=== PATIENT | male | born 1960 | race Caucasian/White ===

== ENCOUNTER 2016-08-17 15:19 | Emergency (ER) | payer MEDICARE, MEDICAID ==
[~2016-08-17] VITALS: Ht 175.3 cm; Wt 77.3 kg
[2016-08-17 15:22] VITALS: BP 127/73; PULSE 83; RESP 18; O2SAT 99
--- NOTE | 2016-08-17 16:44 | DRSVH ---
PROCEDURE: X-RAY RIGHT SHOULDER, MINIMUM TWO VIEWS ([id number]) INDICATIONS: fall TECHNIQUE: 3 views of the shoulder were acquired. COMPARISON: None. FINDINGS: Bones: No f there is mild periarticular osteophyte formation at the acromioclavicular and glenohumer al joints. ractures or dislocations. No suspicious bony lesions. Visualized ribs appear intact. Soft tissues: No suspicious soft tissue calcifications. IMPRESSION: No acute fracture. No osseous lesion. If symptoms and/or clinical suspicion for patholog y persist, further assessment with repeat, or advanced imaging (e.g., CT, MRI, or bone scan) may be h elpful for further assessment. Dictated by: Roverto Richardson M.D. on 08/17/2016 at 16:42 Approved by: Roverto Richardson M.D. on 08/17/2016 at 16:42
--- NOTE | 2016-08-17 16:44 | DRSVH ---
PROCEDURE: X-RAY CHEST, TWO VIEWS ([id number]) INDICATIONS: fall TECHNIQUE: 2 views of the chest were acquired. COMPARISON: [facility], , CHEST 1VW (PORTABLE), 05/03/2012, 20:30. FINDINGS: Surgical changes and devices: None. Lungs and pleura: No pleural effusions or pneumothorax. Lungs are clear. Mediastinum: Mediastinal contours are normal. Heart size is normal. Bones and chest wall: No suspicious bony abnormalities. Soft tissues appear unremarkable. IMPRESSION: No acute process. Dictated by: Roverto Richardson M.D. on 08/17/2016 at 16:42 Approved by: Roverto Richardson M.D. on 08/17/2016 at 16:42
--- NOTE | 2016-08-17 17:41 | PCM.EDPN ---
ED Note Date of Service Aug 17, 2016 48-year-old male who has left without being seen. Complaining of rib pain and shoulder pain after a fall 3 days ago. Vitals are normal. X-rays are normal. I do not believe this patient needs a call back or intervention. Pan Escobar MD Aug 17, 2016 17:41
== END 2016-08-17 17:39 | disposition left against medical advice (07) ==
LOC: SED 15:19
DX: Z53.21 Procedure and treatment not carried out due to patient leaving prior to being seen by health care provider (principal)

== ENCOUNTER 2016-08-17 17:49 | Emergency (ER) | payer MEDICAID, MEDICARE ==
--- NOTE | 2016-08-17 19:04 | ED.REPORT ---
HPI-General Illness Date of Service Aug 17, 2016 ED Provider: Jonathan Terrell PA-C Bernard is a 56-year-old male who returns to the emergency room with a chief complaint of left rib pain and right shoulder pain. he was here earlier in the day and left without being seen. Patient reports approximately 3 days ago he fell down a hill striking his left anterior chest and right shoulder. Complains of severe pain in both areas since then. He finds it difficult to draw deep breath, feels short of breath and lightheaded. Reports a history of [place], stent placement. Nursing Notes Stated Complaint: RIB PAIN Nursing Notes Reviewed: Yes Allergies: Coded Allergies: No Known Allergies (Verified , 08/17/16) No Active Prescriptions or Reported Meds General Time Seen by MD: 18:37 Chief Complaint Other (shoulder pain, rib pain) Past Medical History Past Medical History 1. Cerebrovascular accident (who had a cerebral hemorrhage back in 2002, had a neurolosurgical procedure at [facility]). 2. Coronary artery disease status post stent placement (1999). 3. History of tobaccoism, half a pack per day for many years. 4. Alcohol use socially. 5. Recreational drug THC. 6. History of right little toe cellulitis. 7. History of right groin cellulitis. 8. Right otitis externa. Past Surgical History 2 stents and a cerebral hemmorrhage L 5th finger surgery Smoking History Current Every Day Smoker Social History Alcohol Use: Denies alcohol use Drug Use: Denies drug use Other Social History: Lives alone Occupation lives in motor home Ambulatory Status Independent Review of Systems Negative unless stated otherwise in history of present illness Physical Exam General: well developed, well nourished, moderate distress. Disheveled and expresses great deal of suspicion and anger at the hospital. Right shoulder: Significant step-off at the AC joint which the patient states is long-standing. Mild diffuse tenderness. No redness, swelling, heat. Chest: Normal to inspection. Tender over anterior fourth and fifth ribs approximately. Head: Atraumatic, normocephalic. Eyes: No scleral icterus or injection. No discharge. Vision grossly intact. ENT: Voice clear, hearing grossly intact. Respiratory: Regular rate and rhythm. Breath sounds present, clear to auscultation and equal bilaterally. Cardiovascular: Regular rate and rhythm, without murmur, gallop or rub. Gastrointestinal: Abdomen flat and non-tender without guarding or rebound. Bowel sounds normoactive. Skin: Warm and dry. Neurological: Grossly nonfocal. Psychological: Alert and oriented. Speech slightly paranoid in regard to the motivation's of hospital personnel. Vital Signs Vital signs taken at the patient's previous registration today: Temperature 36.7 C, heart rate 83 bpm, respiratory rate 18 breaths per minute, blood pressure 127/173, oxygen saturation 99% on room air Interpretation & Diagnostics Interpretation & Diagnostics: X-ray results from x-rays taken at the patient's previous registration today: PROCEDURE: X-RAY CHEST, TWO VIEWS ([id number]) INDICATIONS: fall IMPRESSION: No acute process. PROCEDURE: X-RAY RIGHT SHOULDER, MINIMUM TWO VIEWS ([id number]) INDICATIONS: fall IMPRESSION: No acute fracture. No osseous lesion. If symptoms and/or clinical suspicion for pathology persist, further assessment with repeat, or advanced imaging (e.g., CT, MRI, or bone scan) may be helpful for further assessment. Re-Eval/Medical Decision Med Decision/Clinical Course This patient was quite angry from the beginning, complaining about the long wait and accusing me of only being interested in getting his money. He expresses last suspicion of the motivations of hospital staff. 48-year-old male presents with chief complaint of left rib pain and right shoulder pain after a fall down a hill several days ago. Reports feeling short of breath and lightheaded. This patient was first registered earlier in the day , and had x-rays taken of his chest and shoulder. He then departed prior to being seen by a physician. He returned to be examined now. His exam is generally reassuring showing an old right shoulder AC step-off and some tenderness in the left anterior chest. Lungs are clear with breath sounds bilaterally. X-rays reveal no fractures, pneumothorax, hemothorax, pulmonary effusion. I offered the patient incentive spirometry training with her story therapy which he refused. I counseled analgesia with acetaminophen and ibuprofen as well as deep breaths hourly. Patient departed prior to receiving written discharge instructions. Discharge & Departure Primary Impression: Contusion of rib on left side Encounter type: initial encounter Qualified Code: S20.212A - Contusion of left front wall of thorax, initial encounter Additional Impression: Contusion of shoulder, right Encounter type: initial encounter Qualified Code: S40.011A - Contusion of right shoulder, initial encounter Disposition: Home Discharge Condition All VS Reviewed: Yes Condition: Stable Patient Instructions: Contusions in Adults (ED) Additional Instructions: Evaluation for left rib and right shoulder pain in the emergency department. X- ray of the chest is reassuring that there is no damage to her lungs and that there are no fractures in her ribs. X-ray of the shoulder reveals no fractures. I suggestion is that you take 6 of the deepest breaths he can every hour while you are awake to prevent pneumonia. The pain is best treated with 800 mg of ibuprofen (Advil, Motrin) every 6 hours, or 1000 mg of acetaminophen ( Tylenol) every 6 hours. These drugs can be taken at the same time for more severe pain. I will provide her with a referral to a primary care provider. Please contact them to establish care or if you are not feeling significantly better in a week or so. Return to emergency department for new or worsening symptoms including new chest pain or difficulty breathing. Referrals: [facility] Provider for APC: Pan Escobar MD, Seth PA-C Aug 17, 2016 19:04
== END 2016-08-17 19:49 | disposition home or self-care (01) ==
LOC: SED 17:49
DX: S20.212A Contusion of left front wall of thorax, initial encounter (principal); S40.011A Contusion of right shoulder, initial encounter; W17.89XA Other fall from one level to another, initial encounter; Y93.89 Activity, other specified; Y92.828 Other wilderness area as the place of occurrence of the external cause; Y99.8 Other external cause status; R06.02 Shortness of breath; R42 Dizziness and giddiness; I25.10 Atherosclerotic heart disease of native coronary artery without angina pectoris; I25.2 Old myocardial infarction; F17.200 Nicotine dependence, unspecified, uncomplicated; Z86.73 Personal history of transient ischemic attack (TIA), and cerebral infarction without residual deficits